=== PATIENT | female | born 1960 | race Caucasian/White ===

== ENCOUNTER 2021-03-29 06:56 | Observation (INO) | payer MEDICARE, BC ==
[2021-03-29] MEDS ORDERED: ASPIRIN 325 MG TABLET PO STA (07:11)
[2021-03-29 07:28] LABS: BASOPHILS % (AUTO) 0.8 %; EOSINOPHILS # (AUTO) 0.1 10^3/uL (0.0-0.7); EOSINOPHILS % (AUTO) 2.8 %; HCT - HEMATOCRIT 39.7 % (37.0-47.0); HGB - HEMOGLOBIN 13.9 g/dL (12.0-16.0); LYMPHOCYTES # (AUTO) 2.3 10^3/uL (1.5-3.5); MEAN CORPUSCULAR HEMOGLOBIN 34.5 pg (27.0-31.0); MEAN CORPUSCULAR VOLUME 98.5 fL (81.0-99.0); MEAN PLATELET VOLUME 9.6 fL (7.9-10.8); MONOCYTES # (AUTO) 0.4 10^3/uL (0.0-1.0); MONOCYTES % (AUTO) 7.9 %; NEUTROPHILS # (AUTO) 2.1 10^3/uL (1.5-6.6); NEUTROPHILS % (AUTO) 42.3 %; PLT - PLATELET COUNT 197 10^3/uL (130-450); RED BLOOD COUNT 4.03 10^6/uL (4.20-5.40); RED CELL DISTRIBUTION WIDTH 12.8 % (12.0-15.0)
--- NOTE | 2021-03-29 07:34 | ED Physician Documentation ---
PD HPI CHEST PAIN - Stated complaint Stated Complaint: CHEST PX - Chief complaint Chief Complaint: Cardiac - History obtained from History obtained from: Patient - Additional information Additional information: 60-year-old woman with past medical history of high blood pressure not currently on meds, family history of cardiac disease (father), presents with chest pain sudden onset on the treadmill yesterday, her localized to the epigastrium and nonradiating, resolving when she got off of it. She woke again this morning with 6 out of 10 chest heaviness that now radiated up to the left midsternal area, constant, aching quality, gradually tapering down and now a 3 out of 10. Patient denies associated dizziness, nausea or vomiting, shortness of breath, leg swelling, fever chills, back pain, abdominal pain, pleurisy.No prior cardiac history. She has never had a stress test or CCTA. Review of Systems Ten Systems: 10 systems reviewed and negative Constitutional: denies: Fever, Chills Cardiac: reports: Chest pain / pressure. 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(s) : None HEENT: None Psych: Depression Musculoskeletal: None Derm: None - Past Surgical History Past Surgical History: No Ortho: Other - Present Medications Home Medications: Ambulatory Orders Medication Instructions Recorded Confirmed Sertraline [Zoloft] 25 mg PO DAILY 02/19/14 03/29/21 Propranolol [Inderal] 10 mg ORAL BID 01/07/15 01/07/15 traZODone [Desyrel] 50 - 100 mg PO HS PRN 03/29/21 03/29/21 - Allergies Allergies/Adverse Reactions: Allergies Allergy/AdvReac Type Severity Reaction Status Date / Time gabapentin Allergy Unknown Verified 03/29/21 07:03 Sulfa (Sulfonamide Allergy Hives Verified 03/29/21 07:03 Antibiotics) - Social History Does the pt smoke?: No Smoking Status: Never smoker Does the pt drink ETOH?: Yes ETOH Use: Wine Does the pt have substance abuse?: No - Immunizations Immunizations are current?: Yes - POLST Patient has POLST: No PD ED PE NORMAL - Vitals Vital signs reviewed: Yes - General General: Alert and oriented X 3, No acute distress, Well developed/nourished - HEENT HEENT: Atraumatic, PERRL, EOMI - Neck Neck: Supple, no meningeal sign - Cardiac Cardiac: RRR, No murmur - Respiratory Respiratory: No respiratory distress, Clear bilaterally - Abdomen Abdomen: Non tender, Non distended - Derm Derm: Normal color, Warm and dry - Extremities Extremities: No deformity - Neuro Neuro: Alert and oriented X 3, No motor deficit, No sensory deficit - Psych Psych: Normal mood, Normal affect Results - Vitals Vitals: Vital Signs - 24 hr 03/29/21 03/29/21 07:03 07:18 Temperature 36.6 C Heart Rate 63 62 Respiratory 18 14 Rate Blood Pressure 198/114 H 177/110 H O2 Saturation 99 98 Oxygen O2 Source Room air - EKG (time done) 0705 Rate: Rate (enter#) (54) Rhythm: Sinus bradycardia Other comments: Other comments (abnormal R wave progression V1-V4) Compare to prior EKG: Old EKG unavailable - Labs Labs: Laboratory Tests 03/29/21 03/29/21 03/29/21 07:10 07:10 07:10 WBC 5.0 RBC 4.03 L Hgb 13.9 Hct 39.7 MCV 98.5 MCH 34.5 H MCHC 35.0 RDW 12.8 Plt Count 197 MPV 9.6 Neut # (Auto) 2.1 Lymph # (Auto) 2.3 Cameron # (Auto) 0.4 Eos # (Auto) 0.1 Baso # (Auto) 0.0 Absolute Nucleated RBC 0.00 Nucleated RBC % 0.0 Sodium 139 Potassium 4.2 Chloride 105 Carbon Dioxide 27 Anion Gap 7.0 BUN 17 Creatinine 0.9 Estimated GFR (MDRD) 63 L Glucose 97 Calcium 9.4 Total Bilirubin 0.6 AST 18 ALT 19 Alkaline Phosphatase 81 Troponin I High Sens 3.2 Total Protein 7.4 Albumin 4.5 Globulin 2.9 Albumin/Globulin Ratio 1.6 Lipase 37 PD MEDICAL DECISION MAKING - ED course ED course: 60-year-old woman presents with chest pain concerning for ACS, with abnormal EKG without prior cardiac records. Will obtain lab work to evaluate further. Chest x-ray noncontributory. We do have stress testing capabilities here today and tomorrow and if lab work is noncontributory then she may benefit from stress testing. Departure - Departure Disposition: ED Place in Observation Clinical Impression: Chest pain Condition: Stable
[2021-03-29 07:47] LABS: ALBUMIN 4.5 g/dL (3.2-5.5); ALBUMIN/GLOBULIN RATIO 1.6 (1.0-2.2); BILIRUBIN,TOTAL 0.6 mg/dL (0.2-1.0); CALCIUM 9.4 mg/dL (8.5-10.3); CREATININE 0.9 mg/dL (0.4-1.0); POTASSIUM 4.2 mmol/L (3.5-5.0); TOTAL PROTEIN 7.4 g/dL (6.7-8.2)
--- NOTE | 2021-03-29 07:58 | XRAY Report ---
PROCEDURE: Chest 1 View X-Ray INDICATIONS: Chest Pain TECHNIQUE: One view of the chest was acquired. COMPARISON: Chest x-ray 01/07/2015 FINDINGS: Surgical changes and devices: None. Lungs and pleura: No pleural effusions or pneumothorax. Lungs are clear. Mediastinum: Mediastinal contours appear normal. Heart size is normal. Bones and chest wall: No suspicious bony lesions. Overlying soft tissues appear unremarkable. IMPRESSION: No acute pulmonary process. Reviewed by: Pretty Alva MD on 03/29/2021 7:57 AM PDT Approved by: Pretty Alva MD on 03/29/2021 7:57 AM PDT Station ID: [id number]
[2021-03-29] MEDS ORDERED: ONDANSETRON 4 MG/2 ML VIAL IVP PRN (08:19)
[2021-03-29] MEDS ORDERED: SODIUM CHLORIDE FLUSH 0.9% 10 ML SYRINGE IVP PRN (08:19)
--- NOTE | 2021-03-29 08:29 | HISTORY & PHYSICAL EXAMINATION ---
Chief Complaint - Chief Complaint Chief Complaint: Chest pain History of Present Illness - Admitted From Admitted From:: ER - History of Present Illness HPI Comment/Other: This is a 63-year-old white female with a history of hypertension and anxiety on Propranolol, also a history of depression on Sertraline, and on Trazodone for insomnia. Patient has been trying to lose weight due to a recent Dx of fatty liver and was exercising on her home treadmill yesterday and developed epigastric chest pain/pressure which resolved when she stopped exercising. This morning she awoke with similar chest pain at rest rated 6/10, but it was located in the sternum. There was sweating associated symptom this morning. It started to subside on its own but, because of a friend recently having sudden after exercising on a treadmill, she was concerned and she presented to the ER still having chest pain, described at 3/10. In the ER, the Provider said it had resolved spontaneously without any sublingual nitroglycerin, but the patient is reporting to her nurse that it is still 1-2/10. The first troponin is normal and EKG has no ischemic changes but QS waves are present in V1 and V2. Patient is presented to the Hospitalist team to place in Observation status, for further evaluating her chest pain. She has never had this type of pain before. In 2008, she had a different severe, stabbing, 10/10 epigastric pain that was diagnosed as GERD. When she gets that pain, she uses Prilosec. She did try Prilosec for this discomfort, with no effect. In her hospital bed now, she is describing new left arm pressur e as well. She has received 1 sl NTG which helped the arm pain and decreased the chest pain to 1/10. History - Past Medical History Cardiovascular: reports: Hypertension Respiratory: reports: None, Other (She has seasonal allergies. She has had her 2 COVID shots.) Neuro: reports: Head injury (Had concussion from falling on ice, in 2013, since then has balance trouble and insomnia.) Endocrine/Autoimmune: reports: None GI: reports: GERD MANAGER CALL: reports: Miscarriage(s) : reports: None HEENT: reports: None Psych: reports: Depression, Anxiety Musculoskeletal: reports: None Derm: reports: None MRSA Hx?: No - Past Surgical History Ortho: reports: Other - Family & Social History Family History: Mother: Alive and Well (Son), Father: (Heart disease at age 50's, in his 60's), Other family: Alive and Well, Alcoholism (Son) Living arrangement: At home Living Situation: With spouse/s.o., Other (Youngest son lives there) 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 - Substance History Use: Uses substance without health or social issues: NONE, Other (1-2 glasses of wine/day) - POLST Patient has POLST: No Meds/Allgy - Home Medications Home Medications: Ambulatory Orders Medication Instructions Recorded Confirmed Sertraline [Zoloft] 25 mg PO DAILY 02/19/14 03/29/21 Propranolol [Inderal] 10 mg ORAL BID 01/07/15 01/07/15 traZODone [Desyrel] 50 - 100 mg PO HS PRN 03/29/21 03/29/21 - Allergies Allergies/Adverse Reactions: Allergies Allergy/AdvReac Type Severity Reaction Status Date / Time gabapentin Allergy Unknown Verified 03/29/21 07:03 Sulfa (Sulfonamide Allergy Hives Verified 03/29/21 07:03 Antibiotics) Review of Systems - Constitutional Constitutional: reports: Other (None) - Eyes Eyes: reports: Other (None) - Ears, Nose & Throat Ears, Nose & Throat: reports: Other (Seasonal allergies, currently bothering her ) - Cardiovascular Cariovascular: reports: Chest pain - Respiratory Respiratory: reports: Other (Nasal congestion due to seasonl allergies) - Gastrointestinal Gastrointestinal: reports: Other (None) - Neurological Neurological: reports: Other (Insomnia ever since concussion in 2012) - Psychiatric Psychiatric: reports: Depression (Stable sx on Sertraline), Anxiety Exam - Vital Signs Vital Signs: Vital Signs x48h Temp Pulse Resp BP Pulse Ox 03/29/21 07:18 62 14 177/110 H 98 03/29/21 07:03 36.6 C 63 18 198/114 H 99 - Physical Exam General Appearance: positive: No acute distress, Alert Eyes Bilateral: positive: Normal inspection, EOMI ENT: positive: ENT inspection nml, No signs of dehydration Neck: positive: Nml inspection, No JVD, Trachea midline, Other (No carotid bruits) Respiratory: positive: No respiratory distress, Breath sounds nml Cardiovascular: positive: Regular rate & rhythm, No murmur Abdomen: positive: Non-tender, No organomegaly, Nml bowel sounds Skin: positive: Warm, Dry Extremities: positive: Non-tender, No pedal edema Neurologic/Psychiatric: positive: Oriented x3 (Non-focal exam) Conclusion/Plan - Problem List (1) Chest pain Conclusion/Plan: This patient's cardiac risks include postmenopausal status, hypertension, family history of early heart disease (in her father with an DE in his 50s) and unknown cholesterol status. Will place the patient in Observation status, on telemetry. Cycle troponins, the next at 3 hours after the first. If troponins are negative, and if her chest pain resolves, will proceed to a treadmill stress test today with nuclear Myocardial perfusion imaging. If she has ongoing resting chest pain, despite sl NTG x3, will admit to Inpatient status, move her to ICU and start a NTG drip. If she rules in for DE, will reach out to a tertiary care center to transfer her for a coronary angiogram. Order sl NTG prn for chest pain. Will start empiric statin. Start Lovenox at therapeutic bid dosing, in case of ACS. Check fasting lipid panel from her admission blood obtained at 0710 (fasting). Start empiric 1 baby aspirin daily. She got aspirin 325 mg today in the ER already. (2) Abnormal EKG Conclusion/Plan: QS waves are seen on her EKG, Echo or nuclear cardiac imaging will determine if there is already an anteroseptal scar. (3) HTN (hypertension) Conclusion/Plan: BP is elevated, possibly from anxiety over new sx, partly. Will start NTG prn. Will continue her home Propranolol. (4) Depression with anxiety Conclusion/Plan: Will continue her Sertraline and Propranolol. - Lab Results Fish Bones: 03/29/21 07:10 03/29/21 07:10
[2021-03-29 09:00] LABS: CHOL/HDL RATIO 2.8 (<4.4); CHOLESTEROL 214 mg/dL; HDL CHOLESTEROL 77 mg/dL; LDL CHOLESTEROL,CALCULATED 110 mg/dL; LDL/HDL RATIO 1.4 (<4.4); TRIGLYCERIDES 137 mg/dL; VLDL CHOLESTEROL 27 mg/dL
[2021-03-29] MEDS: NITROGLYCERIN SL 0.4 MG TABLET SL PRN ×3 (09:27→11:27)
[2021-03-29] MEDS: SODIUM CHLORIDE FLUSH 0.9% 10 ML SYRINGE IVP SCH ×3 (09:31→23:28)
[2021-03-29] MEDS: ACETAMINOPHEN 325 MG TABLET PO PRN ×3 (09:40→22:45)
[2021-03-29 09:46] LABS: B. PARAPERTUSSIS- RESP PCR PAN NOT DETECTED; B. PERTUSSIS- RESP PCR PANEL NOT DETECTED; C. PNEUMONIAE- RESP PCR PANEL NOT DETECTED; CORONAVIRUS 229E-RESP PCR NOT DETECTED; CORONAVIRUS HKU1-RESP PCR NOT DETECTED; CORONAVIRUS NL63-RESP PCR NOT DETECTED; CORONAVIRUS OC43-RESP PCR NOT DETECTED; HUMAN METAPNEUMOVIRUS NOT DETECTED; INFLUENZA A- RESP PCR PANEL NOT DETECTED; INFLUENZA B - RESP PCR PANEL NOT DETECTED; M. PNEUMONIAE- RESP PCR PANEL NOT DETECTED; PARAINFLUENZA VIRUS 1 NOT DETECTED; PARAINFLUENZA VIRUS 2 NOT DETECTED; PARAINFLUENZA VIRUS 3 NOT DETECTED; PARAINFLUENZA VIRUS 4 NOT DETECTED; RHINOVIRUS/ENTEROVIRUS NOT DETECTED; RSV- RESP PCR PANEL NOT DETECTED; SARS-CoV-2 -RESP PCR PANEL NOT DETECTED
[2021-03-29] MEDS ORDERED: ATORVASTATIN 40 MG TABLET PO ONE (10:43)
[2021-03-29] MEDS ORDERED: traZODone 50 MG TABLET PO PRN (10:44)
[2021-03-29] MEDS: SERTRALINE 25 MG TABLET PO SCH (11:38)
[2021-03-29] MEDS: HYDROmorphone 0.5 MG/0.5 ML SYRINGE IVP PRN ×2 (11:39→20:33)
[2021-03-29] MEDS: ENOXAPARIN 80 MG/0.8 ML SYRINGE SUBQ SCH ×2 (11:39→22:04)
[2021-03-29] MEDS: NITROGLYCERIN 0.2 MG/HR PATCH TOP SCH (13:57)
[2021-03-29] MEDS ORDERED: FAMOTIDINE 20 MG TABLET PO PRN (17:33)
[2021-03-29] MEDS: PROPRANOLOL 10 MG TABLET PO SCH (22:04)
[2021-03-30] MEDS: ACETAMINOPHEN 325 MG TABLET PO PRN ×2 (04:33→09:39)
[2021-03-30 05:07] LABS: BASOPHILS % (AUTO) 0.6 %; EOSINOPHILS # (AUTO) 0.1 10^3/uL (0.0-0.7); EOSINOPHILS % (AUTO) 2.4 %; HCT - HEMATOCRIT 38.9 % (37.0-47.0); LYMPHOCYTES # (AUTO) 2.6 10^3/uL (1.5-3.5); LYMPHOCYTES % (AUTO) 48.2 %; MEAN CORPUSCULAR HGB CONC 33.4 g/dL (32.0-36.0); MEAN CORPUSCULAR VOLUME 98.7 fL (81.0-99.0); MEAN PLATELET VOLUME 9.8 fL (7.9-10.8); MONOCYTES # (AUTO) 0.3 10^3/uL (0.0-1.0); MONOCYTES % (AUTO) 5.4 %; NEUTROPHILS # (AUTO) 2.3 10^3/uL (1.5-6.6); PLT - PLATELET COUNT 175 10^3/uL (130-450); RED BLOOD COUNT 3.94 10^6/uL (4.20-5.40); RED CELL DISTRIBUTION WIDTH 12.6 % (12.0-15.0); WHITE BLOOD COUNT 5.4 x10^3/uL (4.8-10.8)
[2021-03-30 05:14] LABS: CALCIUM 8.8 mg/dL (8.5-10.3); CREATININE 0.7 mg/dL (0.4-1.0); POTASSIUM 3.8 mmol/L (3.5-5.0)
[2021-03-30] MEDS: NITROGLYCERIN 0.2 MG/HR PATCH TOP SCH (06:31)
[2021-03-30] MEDS ORDERED: ASPIRIN EC 81 MG TABLET PO SCH (09:00)
[2021-03-30] MEDS ORDERED: polyethylene glycoL 3350 17 GM PACKET PO SCH (09:00)
[2021-03-30] MEDS: ENOXAPARIN 80 MG/0.8 ML SYRINGE SUBQ SCH (09:02)
[2021-03-30] MEDS: SERTRALINE 25 MG TABLET PO SCH (09:02)
[2021-03-30] MEDS: PROPRANOLOL 10 MG TABLET PO SCH (09:03)
[2021-03-30] MEDS: SODIUM CHLORIDE FLUSH 0.9% 10 ML SYRINGE IVP SCH ×2 (09:03→17:10)
--- NOTE | 2021-03-30 12:21 | CARDIAC PROCEDURE NOTE ---
Stress Test Report Service Date: 03/30/21 Ordering Provider: Dr Keller (Hospitalist), Dr Aleisha Shaw (PCP) Indication for Test: Chest pain Cardiac Risk Factors: Post-menopausal status, HTN, Family Hx of early heart disease Type of Stress Test: ETT with Myocardial Perfusion Imaging Procedure: After signing informed consent, the patient underwent a Garo-protocol treadmill stress test with nuclear myocardial perfusion imaging. Resting heart rate: 59. Peak heart rate: 158 (100% predicted maximum heart rate for age). Resting blood pressure: 159/101 Peak blood pressure: 205/88 (pt did not have her morning BP med, Inderal) The patient exercised for 7 minutes and 3 seconds on a Garo-protocol treadmill stress test. She achieved a peak heart rate of 158 (100% p.m. HR) and 8.66 METS. The patient had moderate shortness of breath at peak. Oxygen saturation dropped to 89% on room air at peak exercise, but had quick recovery to 92% in under 15 seconds. She had no chest pain during exercise. She rated her perceived exertion at 15/20 at peak, on the Antonette scale. Resting EKG: Normal sinus rhythm, left atrial enlargement, otherwise within normal limits. EKG at peak: 1.[address] segment depression seen in the lateral leads. Summary: 1. Essentially normal EKG at rest. 2. Fair aerobic tolerance. 3. Non-specific EKG changes occur with exercise. 4. Nuclear images were reported separately and showed: No fixed or reversible perfusion defects to suggest ischemia. Normal resting LVEF. IMPRESSION: 1. Normal stress test.
[2021-03-30] MEDS ORDERED: PROPRANOLOL 10 MG TABLET PO ONE (13:03)
[2021-03-30] MEDS ORDERED: SUCRALFATE 1 GM/10 ML UDC PO ONE (13:04)
[2021-03-30] MEDS ORDERED: ONDANSETRON ODT 4 MG TABLET TL PRN (13:57)
--- NOTE | 2021-03-30 15:31 | Nuclear Medicine Report ---
PROCEDURE: Rest and exercise myocardial perfusion SPECT with gated imaging and ejection fraction INDICATIONS: Chest pain. RADIOPHARMACEUTICAL: 15.6 mCi Tc-99m Myoview IV at rest and 44.1 mCi Tc-99m Myoview IV at peak exerc ise. [id number] was performed. TECHNIQUE: Radiopharmaceutical was injected at peak stress test, and also at rest. SPECT images wer e obtained. SPECT myocardial perfusion images were displayed in short axis, horizontal long axis, an d vertical long axis views. Gated images were reviewed using Auto[employer] software. COMPARISON: None available. FINDINGS: Raw data: There is good myocardial labeling by radiotracer. No significant motion artifacts. Lung- to-heart ratio is 0.31 (normal is less than 0.46 for tetrafosmin tracer). Left ventricle function: Gated images demonstrate normal left ventricle wall thickening. No segment al wall motion abnormality. No transient ischemic dilation; TID is 0.81 (normal less than 1.30). Th e left ventricle resting end-diastolic volume is normal. Left ventricle stress ejection fraction is >70%; normal values are above 45%. Myocardial perfusion: There is a moderate-sized, mild, partially reversible perfusion defect in the lateral wall of the left ventricle, which is resolved on prone imaging, likely caused by attenuation artifact. There is otherwise normal distribution of activity in the left and right ventricular myocar dium. IMPRESSION: 1. Probably normal myocardial perfusion images. No convincing evidence for myocardial ischemia or inf arct. 2. Normal left ventricular volume and systolic function. 3. Please correlate with stress EKG result. PQRS ATTESTATIONS: Measure 322 - Is this imaging test primarily performed on a low-risk surgery patient for preoperative evaluation within 30 days preceding their low-risk non-cardiac surgery? Low-risk surgery is defined as cardiac or myocardial infarction less than 1%, including (but not limited to) endoscopic pr ocedures, superficial procedures, cataract surgery, and excisional breast surgery: Answer: No Measure 323 - Is this imaging test performed primarily for the monitoring of an asymptomatic patient who had percutaneous coronary intervention on the visit date or within 2 years of the visit date? An swer: No Measure 324 - Is this imaging test performed primarily for the initial detection and risk assessment on an asymptomatic, low coronary heart disease patient? Low CHD risk definition = clinicians should consider the maximum number of available patient factors used to estimate risk based on [place] (A TP III criteria), typically age, gender, diabetes, smoking status, and use of blood pressure medicati on, and integrate age appropriate estimates for missing elements, such as LDL or standard blood press ure. Answer: No Reviewed by: Natalie Bills MD on 03/30/2021 3:30 PM PDT Approved by: Natalie Bills MD on 03/30/2021 3:30 PM PDT Station ID: [id number]
--- NOTE | 2021-03-30 16:08 | Discharge Plan ---
Discharge Plan Problem Reviewed?: Yes Disposition: Home, Self Care Condition: Stable Diet: Low Sodium Activity Restrictions: Activity as Tolerated Shower Restrictions: No Driving Restrictions: No Health Concerns: You were in the hospital in Observation status to evaluate chest pain. The final results showed that you did not have a scar in your heart (no prior heart attack), and the stress test was within normal limits. Since you get chest pain not associated with exertion, this may be pain related to your gastrointestinal tract. Please see your PCP for follow-up after hospitalization for further evaluation of your symptoms of chest pain. You may need to have GI evaluation. Resume all your usual prehospital medications. Plan of Treatment: As above. Care Goals: Improvement in symptoms and stabilization are the goals. Assessment: Patient understands and is agreeable with the plan. Additional Instructions or Follow Up instructions: If you have new or worsening symptoms, call your PCP for advice or come to the ER. No Smoking: If you smoke, Please STOP! Call for help. Follow-up with: Cynthia Shaw MD [Primary Care Provider] -
--- NOTE | 2021-03-30 16:11 | DISCHARGE SUMMARY ---
Discharge Summary Admit Date: 03/29/21 Discharge Date: 03/30/21 Discharging Provider: Dr Miya Keller Primary Care Provider: Dr Cynthia Shaw Code Status: Attempt Resuscitation Condition at Discharge: Stable Discharge Disposition: 01 Home, Self Care - HPI History of Present Illness: This is a 63-year-old white female with a history of hypertension and anxiety on Propranolol, also a history of depression on Sertraline, and on Trazodone for insomnia. Patient has been trying to lose weight due to a recent Dx of fatty liver and was exercising on her home treadmill yesterday and developed epigastric chest pain/pressure which resolved when she stopped exercising. This morning she awoke with similar chest pain at rest rated 6/10, but it was located in the sternum. There was sweating associated symptom this morning. It started to subside on its own but, because of a friend recently having sudden after exercising on a treadmill, she was concerned and she presented to the ER still having chest pain, described at 3/10. In the ER, the Provider thought the chest pain had resolved spontaneously without any sublingual nitroglycerin, but the patient is reporting to her nurse that it is still present and rated it 1- 2/10. The first troponin is normal and EKG has no ischemic changes but QS waves are present in V1 and V2. Patient is presented to the Hospitalist team to place in Observation status, for further evaluating and managing her chest pain. She has never had this type of pain before. In 2008, she had a different severe, stabbing, 10/10 epigastric pain that was diagnosed as GERD. When she gets that pain, she uses Prilosec. She did try Prilosec for this discomfort, with no effect. In her hospital bed now, she is describing new left arm pressure as well. She has received 1 sl NTG which helped the arm pain and decreased the chest pain to 1/10. - HOSPITAL COURSE Hospital Course: (1) Chest pain This patient's cardiac risks include postmenopausal status, hypertension, family history of early heart disease (in her father with an MD in his 50s) and we checked her cholesterol status (total chol 213, LDL 110). She had troponins done x3 which were all normal at 3. She did have recurrence of resting chest pain that possibly improved with sublingual nitroglycerin and she received a small dose of Dilaudid iv for complete pain control. She was kept on her B- lorenzo, and started on sublingual nitroglycerin as needed, topical nitro patch daily, aspirin daily, Lovenox therapeutic dose twice daily until troponins were back and negative, and also started on a statin empirically. The following day she underwent a treadmill stress test with nuclear myocardial perfusion imaging. She had no chest pain with exercise, achieved 8.66 METS and had nonspecific EKG changes. The Nuclear myocardial perfusion scan showed normal uptake, no areas of scar or reversible perfusion to suggest ischemia. She had chest pain about 30 minutes after her exercise test, which improved with 1 dose of liquid sucralfate. She is being discharged to follow-up with her PCP for further evaluation of non-anginal, possibly GI chest pain. (2) Abnormal EKG QS waves were seen on her admission EKG, and an Echo was done to determine if there is already an anteroseptal scar. The Echo showed normal resting LV wall motion, no scar, normal LVEF. The next EKG did not show those QS waves. (3) HTN (hypertension) BP was intermittently elevated, possibly from anxiety over new symproms. We continued her home Propranolol dose. (4) Depression with anxiety Conclusion/Plan: We continued her Sertraline and Propranolol. - ALLERGIES Allergies/Adverse Reactions: Allergies Allergy/AdvReac Type Severity Reaction Status Date / Time gabapentin Allergy Unknown Verified 03/29/21 07:03 Sulfa (Sulfonamide Allergy Hives Verified 03/29/21 07:03 Antibiotics) - MEDICATIONS Home Medications: Ambulatory Orders Medication Instructions Recorded Confirmed Sertraline [Zoloft] 25 mg PO DAILY 02/19/14 03/29/21 Propranolol [Inderal] 20 mg ORAL BID 01/07/15 01/07/15 traZODone [Desyrel] 50 - 100 mg PO HS PRN 03/29/21 03/29/21 - PHYSICAL EXAM AT DISCHARGE General Appearance: positive: No acute distress, Alert Eyes Bilateral: positive: Normal inspection, EOMI ENT: positive: ENT inspection nml, No signs of dehydration Neck: positive: Nml inspection, No JVD Respiratory: positive: Chest non-tender, No respiratory distress, Breath sounds nml Cardiovascular: positive: Regular rate & rhythm, No murmur Abdomen: positive: Non-tender, Nml bowel sounds, No distention Back: positive: Nml inspection Skin: positive: Warm, Dry Extremities: positive: Non-tender, No pedal edema Neurologic/Psychiatric: positive: Oriented x3 (Non-focal) - LABS Result Diagrams: 03/30/21 04:20 03/30/21 04:20 - DIAGNOSTIC IMAGING Diagnostic Imaging Results: Final report reviewed - FOLLOW UP Follow Up: See PCP, Dr Shaw, for hospital follow-up and further evaluation and management. - TIME SPENT Time Spent in Discharge (Minutes): 30
[2021-03-30 16:41] VITALS: BP 131/84
[2021-03-30] MEDS ORDERED: oxyCODONE 5 MG TABLET PO ONE (17:04)
== END 2021-03-30 17:20 | disposition home or self-care (01) ==
LOC: ED 06:56 → MS3 08:19
PROVIDERS: ADMIT Internal Medicine; ATTEND Internal Medicine
DX: R07.89 Other chest pain (principal); I10 Essential (primary) hypertension; R94.31 Abnormal electrocardiogram [ECG] [EKG]; F41.8 Other specified anxiety disorders; Z78.0 Asymptomatic menopausal state; Z20.822 Contact with and (suspected) exposure to COVID-19; Z82.49 Family history of ischemic heart disease and other diseases of the circulatory system; K76.0 Fatty (change of) liver, not elsewhere classified
CPT/HCPCS: 36415; 71045; 78452; 80048; 80053; 80061; 83690; 84484; 85025; 87631; 93005; 93017; 93306; 96372; 96374; 96376; 99284; 99285; A9270; A9500; G0378; J1170; J1650; 0202U; 83721